=== PATIENT | male | born 1990 | race American Indian/Alaskan Native ===

== ENCOUNTER 2021-01-31 22:09 | Emergency (ER) | payer OTHER ==
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
[2021-01-31] MEDS ORDERED: oxyCODONE /ACETAMINOPHEN 5-325MG TAB PO ONE (22:35)
[2021-01-31] MEDS ORDERED: TETANUS,DIPH,PERTUSS(ACELL) VACCINE 0.5 ML SYRINGE IM ONE (22:37)
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
[2021-01-31 23:32] VITALS: BP 144/89
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
== END 2021-02-01 01:30 ==
LOC: ED 22:09
DX: S00.93XA Contusion of unspecified part of head, initial encounter (principal); S09.93XA Unspecified injury of face, initial encounter; M54.9 Dorsalgia, unspecified; Z02.89 Encounter for other administrative examinations; V89.0XXA Person injured in unspecified motor-vehicle accident, nontraffic, initial encounter; Y93.89 Activity, other specified; Y92.89 Other specified places as the place of occurrence of the external cause; Y99.8 Other external cause status
CPT/HCPCS: 70450; 70486; 71046; 72070; 99284